=== PATIENT | male | born 1985 | race African-American/Black ===

== ENCOUNTER 2021-06-27 09:41 | Emergency (ER) | payer MEDICARE, OTHER ==
[~2021-06-27] VITALS: Ht 175.3 cm; Wt 64.0 kg
[2021-06-27] MEDS ORDERED: IBUPROFEN 600MG TABLET PO ONE (11:30)
[2021-06-27] MEDS ORDERED: ACETAMINOPHEN 325MG TABLET PO ONE (11:30)
[2021-06-27] MEDS ORDERED: IBUP-2028 MT (11:49)
[2021-06-27] MEDS ORDERED: AMOX-424 MT (11:49)
[2021-06-27 11:58] VITALS: BP 115/68
== END 2021-06-27 11:58 | disposition home or self-care (01) ==
LOC: ER 09:41
DX: K06.9 Disorder of gingiva and edentulous alveolar ridge, unspecified (principal)
CPT/HCPCS: 99281

== ENCOUNTER 2022-06-30 17:06 | Emergency (ER) | payer MEDICAID, MEDICARE ==
[~2022-06-30] VITALS: Ht 177.8 cm; Wt 66.0 kg
[~2022-06-30 17:06] MED LIST: AMOX-424 MT; IBUP-2028 MT
[2022-06-30 17:11] VITALS: BP 146/86
== END 2022-06-30 19:22 | disposition left against medical advice (07) ==
LOC: ER 17:06
DX: Z53.21 Procedure and treatment not carried out due to patient leaving prior to being seen by health care provider (principal)

== ENCOUNTER 2022-10-16 22:13 | Emergency (ER) | payer MEDICAID ==
[~2022-10-16] VITALS: Ht 177.8 cm; Wt 75.0 kg
[2022-10-16 22:20] VITALS: BP 106/62
== END 2022-10-17 02:41 | disposition home or self-care (01) ==
LOC: ER 22:13
DX: R07.0 Pain in throat (principal); F12.10 Cannabis abuse, uncomplicated
CPT/HCPCS: 99283

== ENCOUNTER 2023-10-05 13:15 | Emergency (ER) | payer MEDICARE, MEDICAID ==
[~2023-10-05] VITALS: Ht 177.8 cm; Wt 70.0 kg
[2023-10-05 13:54] VITALS: BP 114/70; PULSE 78; TEMP 98.5; O2SAT 100
[2023-10-05 14:58] LABS: BASOPHILS % 1.1 % (0.0-2.0); EOSINOPHILS % 0.7 % (0.0-5.0); HEMATOCRIT. 38.3 % (42.0-52.0); HEMOGLOBIN. 12.8 g/dL (14.0-18.0); LYMPHOCYTES % 32.1 % (20.0-50.0); MEAN CORPUSCULAR HEMOGLOBIN 29.8 pg (28.0-32.0); MEAN CORPUSCULAR HGB CONC 33.5 g/dL (31.0-37.0); MEAN PLATELET VOLUME 8.1 fl (7.4-10.4); MONOCYTES % 6.7 % (2.0-8.0); NEUTROPHILS % 59.4 % (40.0-76.0); PLATELET 223 x1000/uL (130-400); RED BLOOD CELL COUNT 4.31 mill/uL (4.7-6.1); RED CELL DISTRIBUTION WIDTH 14.2 % (11.6-14.6); WHITE BLOOD COUNT 4.4 x1000/uL (4.5-11.0)
[2023-10-05 15:06] LABS: CHLORIDE 107 mEq/L (98-107); POTASSIUM 4.5 mEq/L (3.5-5.1); SODIUM 139 mEq/L (136-145)
[2023-10-05 15:07] LABS: CALCIUM 9.7 mg/dL (8.7-10.4); CARBON DIOXIDE 28 mEq/L (21-32)
[2023-10-05 15:12] LABS: CREATININE 1.1 mg/dL (0.6-1.3); GLUCOSE 80 mg/dL (70-105); UREA NITROGEN BLOOD 10 mg/dL (9-23)
[2023-10-05 15:17] LABS: THYROID STIMULATING HORMONE 1.36 uIU/mL (0.55-4.78)
[2023-10-05 16:30] VITALS: RESP 17
== END 2023-10-05 20:22 | disposition home or self-care (01) ==
LOC: ER 13:15
DX: M54.2 Cervicalgia (principal); F12.10 Cannabis abuse, uncomplicated
CPT/HCPCS: 36415; 72040; 80048; 84443; 85025; 99284